=== PATIENT | female | born 1970 | race Caucasian/White ===

== ENCOUNTER 2018-07-25 04:10 | Emergency (ER) | payer OTHER ==
--- NOTE | 2018-07-25 04:38 | ED Physician Documentation ---
Abscess - HISTORIAN Historian: patient - HPI Stated Complaint: ABCESS Chief Complaint: General Adult Onset: days ago (3) Timing: still present Duration: worse Location: other (left labia ) Quality: painful Identified Cause?: No Where: home Context: Medication Exposure: none Context: Food Exposure: none - ROS CONST: none MS/SKIN/LYMPH: other (abcess area on left labia ) - PAST HX Past History: other (heart failure, DM GERD, Depression ) Surgeries/Procedures: Yes (heart ) Immunizations: UTD Allergies/Adverse Reactions: Allergies Allergy/AdvReac Type Severity Reaction Status Date / Time No Known Allergies Allergy Verified 09/12/16 20:52 Home Medications: Ambulatory Orders Medication Instructions Recorded Carvedilol [Coreg] 12.5 mg PO D 09/21/13 Citalopram Hydrobromide [Celexa] 40 mg PO D 09/21/13 Esomeprazole Magnesium [Nexium] 40 mg PO D 09/21/13 Furosemide 40 mg PO D 09/21/13 Insulin Glargine,Hum.rec.anlog 50 units SQ BID 09/21/13 [Lantus Solostar] Insulin Lispro [Humalog] 10 units SQ TID 09/21/13 Lisinopril 10 mg PO HS 09/21/13 - SOCIAL HX Smoking History: non-smoker Alcohol Use: none Drug Use: none - FAMILY HX Family History: none - VITAL SIGNS Vital Signs: Vital Signs Temp Pulse Resp BP Pulse Ox 97.6 F 67 12 123/86 92 07/25/18 04:15 07/25/18 04:15 07/25/18 04:15 07/25/18 04:15 07/25/18 04:15 - REVIEWED ASSESSMENTS Nursing Assessment Reviewed: Yes Vitals Reviewed: Yes Abscess Physical Exam - EXAM General Appearance: no acute distress, alert Skin: warm,dry, other (2 cm (palpated) cellulitis area on left lateral labia - no purulent drainage ) Symptoms: warmth, tenderness, swelling. No: induration, well defined border, weeping, crusting Extremities: non-tender, nml ROM Respiratory: no resp distress, chest non-tender, breath sounds normal CVS: reg. rate & rhythm, heart sounds nml Abdomen: non-tender, no organomegaly, nml bowel sounds Neuro/Psych: oriented x3 Discharge Clincal Impression: Abscess Comments: 1. Bactrim DS Take 1 by mouth BID X 10 days 2. Warm compress/Sitz type bath as discussed 3. New razor after 24 hours 4. See PCP In 2-4 days if no improvement 5. Return to ER for any concerns Condition: Stable Disposition: 01 HOME, SELF-CARE Decision to Admit: NO Date of Decison to Admit: 07/25/18 Decision Time: 04:44
[2018-07-25 04:57] VITALS: BP 137/86
== END 2018-07-25 04:55 | disposition home or self-care (01) ==
LOC: ED 04:10
DX: L02.91 Cutaneous abscess, unspecified (principal)
CPT/HCPCS: 99283

== ENCOUNTER 2018-08-27 08:25 | Emergency (ER) | payer MEDICARE, OTHER ==
--- NOTE | 2018-08-27 08:52 | ED Physician Documentation ---
General Adult - HISTORIAN Historian: patient, spouse - HPI Stated Complaint: cough x 2 weeks, n/v Chief Complaint: General Adult Onset: other (2 weeks) Timing: still present Severity: moderate Further Comments: yes (Pt is a 47 yo female who c/o n/v x 2 weeks. Pt has also had R rib pain, 2nd to coughing. Pt has hx DM, cardiomyopathy and defibrillator. Pt also has known gallbladder dz and is being followed for this.) - ROS CONST: other (malaise) EYES/ENT: none CVS/RESP: shortness of breath, cough GI/: none MS/SKIN/LYMPH: none - PAST HX Past History: other (DM, sleep apnea, GERD, depression, cardiomyopathy, defibrillator) Allergies/Adverse Reactions: Allergies Allergy/AdvReac Type Severity Reaction Status Date / Time No Known Allergies Allergy Verified 08/27/18 08:58 Home Medications: Ambulatory Orders Medication Instructions Recorded Carvedilol [Coreg] 12.5 mg PO BID 09/21/13 Citalopram Hydrobromide [Celexa] 40 mg PO D 09/21/13 Esomeprazole Magnesium [Nexium] 40 mg PO D 09/21/13 Furosemide 40 mg PO D 09/21/13 Insulin Glargine,Hum.rec.anlog 50 units SQ BID 09/21/13 [Lantus Solostar] Insulin Lispro [Humalog] 10 units SQ TID 09/21/13 Lisinopril 10 mg PO HS 09/21/13 Doxycycline Monohydrate [Mondoxyne 100 mg PO Q12H #20 capsule 08/27/18 Nl] Metolazone [Zaroxolyn] 08/27/18 Potassium Chloride [Klor-Con M20] 20 meq PO DAILY 08/27/18 - SOCIAL HX Smoking History: cigarettes - FAMILY HX Family History: No - VITAL SIGNS Vital Signs: Vital Signs Temp Pulse Resp BP Pulse Ox 137/86 07/25/18 04:54 - REVIEWED ASSESSMENTS Nursing Assessment Reviewed: Yes Vitals Reviewed: Yes Progress - Progress Progress: CXR: Single view of the chest demonstrates a normal cardiac silhouette. Bibasilar parenchymal haziness and blunting of the diaphragmatic region. Osseous structures appropriate for age. Impression: Moderate to large bibasilar infiltrates/effusions. X-ray R ribs: no fracture. CT chest pulmonic pulmonary embolism protocol: No evidence for luminal filling defect within the main pulmonary arteries to the 3rd order branch vessels bilaterally. Thoracic aorta without aneurysmal dilation. No evidence for dissection flap. Lungs demonstrate mild interstitial prominence with dependent atelectasis bilaterally. Small focal consolidation involving the superior margin of the right lower lung. No evidence for posterior pleural effusion or thickening. Mild by hilar jeromy fullness. Cardiac silhouette not enlarged. No pericardial effusion. Cardiac pacemaker. Osseous structures demonstrate degenerative changes. Lower neck structures, axilla regions, and upper abdominal organs are without gross irregularity. Impression: No evidence for pulmonary embolism by CT criteria. No evidence for thoracic aortic dissection or abnormality. Small focal right midlung consolidation. Generalized interstitial prominence suggesting congestive edema. No effusion. Insulin regular 10 units SQ Insulin regular 10 units SQ Rx Doxycycline 100 mg. Take one by mouth every 12 hours for 10 days. Follow up with primary provider next week. Continue Lasix and Zaroxolyn. - EKG/XRAY/CT EKG: rhythm (sinus tachycardia, HR-104; non-specific T-wave abnormality; normal axis.) XRAY: chest (No acute pulmonary process.) ED Results Lab/Radiology - Orders Orders: ED Orders Category Date Time Status Continuous EKG monitoring Q30M Care 08/27/18 08:47 Ordered Continuous Pulse Oximetry Q30M Care 08/27/18 08:[address] IV Lock 1T Care 08/27/18 08:47 Ordered CHEST 2VIEW [RAD] Stat Exams 08/27/18 Ordered BLOOD CULTURE Stat Lab 08/27/18 Ordered CBC/PLATELET/DIFF Routine Lab 08/27/18 08:47 Ordered CKMB Stat Lab 08/27/18 Ordered CMP Routine Lab 08/27/18 08:47 Ordered CREATINE KINASE Routine Lab 08/27/18 08:47 Ordered TROPONIN I (cTnI) Stat Lab 08/27/18 08:47 Ordered Oxygen Daily Oxygen 08/27/18 09:00 Ordered EKG WITH COMPARISON Stat Ther 08/27/18 08:47 Ordered General Adult Physical Exam - PHYSICAL EXAM GENERAL APPEARANCE: mild distress EENT: pharynx normal NECK: normal inspection, supple RESPIRATORY: no resp distress, breath sounds normal, other (R chest wall tenderness) CVS: heart sounds normal, tachycardia ABDOMEN: soft, no organomegaly, normal bowel sounds BACK: normal inspection, no CVA tenderness SKIN: warm/dry, normal color EXTREMITIES: non-tender, normal range of motion, no evidence of injury, no edema NEURO: oriented X3, motor nml, sensation nml Discharge Clincal Impression: Small R midlung consolidation, hyperglycemia, Elevated brain natriuretic peptide (BNP) level, know gall bladder dz Prescriptions: Doxycycline Monohydrate [Mondoxyne Nl] 100 mg PO Q12H #20 capsule Referrals: Primary Doctor,No [Primary Care Provider] - Condition: Stable Disposition: 01 HOME, SELF-CARE Decision to Admit: NO Decision Time: 14:20
[2018-08-27] MEDS ORDERED: IPRATROPIUM/ALBUTEROL SULFATE 3 ML AMPUL.NEB NEB ONE (08:54)
[2018-08-27] MEDS ORDERED: INSULIN REGULAR, HUMAN 100 UNIT/ML 3ML VIAL SQ ONE ×2 (08:55→13:15)
[2018-08-27] MEDS ORDERED: 0.9 % SODIUM CHLORIDE 1,000 ML IV ONE (08:56)
[2018-08-27] MEDS ORDERED: ONDANSETRON HCL/PF 4 MG/ 2ML VIAL IVP ONE (09:10)
[2018-08-27 09:24] LABS: MEAN CORPUSCULAR HEMOGLOBIN 26.3 pg (28.0-34.0)
[2018-08-27 09:25] LABS: BASOPHILS % 0.9 (0.0-1.5); EOSINOPHILS % 1.5 % (0.0-6.8); MONOCYTES % 8.5 % (0.0-11.0); NEUTROPHILS # 8.3 # k/uL (1.4-7.7)
[2018-08-27 09:33] LABS: eGFR (Non-African) > 60
[2018-08-27 12:51] LABS: TROPONIN T <0.010 ng/mL (<0.010)
[2018-08-27 14:31] VITALS: BP 119/90
--- NOTE | 2018-08-27 20:16 | Diagnostic Imaging Report ---
CORI ISAACS [facility] [address] [facility] [address] [place], [place]. [address] Report Submission Date: Aug 27, 2018 9:25:53 AM CDT Patient Study Name: CHANDRIKA BUSTILLOS Date: Aug 27, 2018 8:52:25 AM CDT Modality Type: DX Gender: F Description: CHEST : 66 Institution: [facility] Physician: CORI ISAACS Examination: PA and lateral chest. History: Evaluate lung weems. RT ANT UPPER RIB PAIN, COUGH, N/V, X2 WEEKS, NO INJURY (Hx) Comparison exam: None provided. Findings: PA and lateral views of the chest demonstrates a prominent cardiac and mediastinal silhouette. No focal infiltrate. No blunting of the costophrenic margins. Left-sided cardiac pacemaker. Osseous structures are appropriate for age. Impression: No acute pulmonary process. Electronically signed on Aug 27, 2018 9:25:53 AM CDT by: Wilfrid ZARATE
--- NOTE | 2018-08-27 20:16 | Diagnostic Imaging Report ---
CORI ISAACS [facility] [address] [facility] [address] [address] Report Submission Date: Aug 27, 2018 9:31:29 AM CDT Patient Study Name: CHANDRIKA BUSTILLOS Date: Aug 27, 2018 8:55:28 AM CDT Modality Type: DX Gender: F Description: CHEST : 66 Institution: [facility] Physician: CORI ISAACS Examination: Plain film right ribs History: RT ANT UPPER RIB PAIN, COUGH, N/V, X2 WEEKS, NO INJURY (Hx) Findings: 3 views of the right ribs demonstrates normal cortical margins. No fracture or dislocation. Underlying parenchymal without abnormality. Acromioclavicular joint degenerative changes. Impression: No rib fracture/abnormality. Electronically signed on Aug 27, 2018 9:31:29 AM CDT by: Wilfrid ZARATE
--- NOTE | 2018-08-27 20:18 | Diagnostic Imaging Report ---
CORI ISAACS [facility] [address] [facility] [address] [place] [address]. [address] Report Submission Date: Aug 27, 2018 11:24:41 AM CDT Patient Study Name: CHANDRIKA BUSTILLOS Date: Aug 27, 2018 10:55:04 AM CDT Modality Type: CT\SR Gender: F Description: CT PE CHEST : 66 Institution: [facility] Physician: CORI ISAACS Examination: CT chest pulmonary embolism History: SOA X2-3 WEEKS, ELEVATED DDIMER (Hx) Comparison exam: Plain film dated 27 August 2018 Technique: CT chest pulmonic pulmonary embolism protocol. Findings: No evidence for luminal filling defect within the main pulmonary arteries to the 3rd order branch vessels bilaterally. Thoracic aorta without aneurysmal dilation. No evidence for dissection flap. Lungs demonstrate mild interstitial prominence with dependent atelectasis bilaterally. Small focal consolidation involving the superior margin of the right lower lung. No evidence for posterior pleural effusion or thickening. Mild by hilar jeromy fullness. Cardiac silhouette not enlarged. No pericardial effusion. Cardiac pacemaker. Osseous structures demonstrate degenerative changes. Lower neck structures, axilla regions, and upper abdominal organs are without gross irregularity. Impression: No evidence for pulmonary embolism by CT criteria. No evidence for thoracic aortic dissection or abnormality. Small focal right midlung consolidation. Generalized interstitial prominence suggesting congestive edema. No effusion. Electronically signed on Aug 27, 2018 11:24:41 AM CDT by: Wilfrid ZARATE
== END 2018-08-27 14:09 | disposition home or self-care (01) ==
LOC: ED 08:25
DX: J98.4 Other disorders of lung (principal); R73.9 Hyperglycemia, unspecified; R79.89 Other specified abnormal findings of blood chemistry; Z95.0 Presence of cardiac pacemaker; R06.02 Shortness of breath
CPT/HCPCS: 71046; 71100; 71275; 80053; 82550; 82553; 83880; 84484; 85025; 85379; 87040; 93005; J1815; J2405; J7030; 94640; 96365; 96372; 96375; 99285; Q9967; S1016

== ENCOUNTER 2018-09-04 15:18 | Emergency (ER) | payer MEDICARE, OTHER ==
[2018-09-04 15:34] LABS: MEAN CORPUSCULAR HEMOGLOBIN 25.9 pg (28.0-34.0)
[2018-09-04 15:35] LABS: BASOPHILS % 0.9 (0.0-1.5); EOSINOPHILS % 3.8 % (0.0-6.8); MONOCYTES % 11.9 % (0.0-11.0)
[2018-09-04] MEDS ORDERED: MORPHINE SULFATE 2 MG/ML PREFILLED SYR IVP ONE (15:35)
[2018-09-04] MEDS ORDERED: ONDANSETRON HCL/PF 4 MG/ 2ML VIAL IVP ONE (15:35)
[2018-09-04 15:51] LABS: eGFR (Non-African) > 60
--- NOTE | 2018-09-04 16:02 | Diagnostic Imaging Report ---
MAXINE RICO [facility] [address] [facility] [address] [place], [place]. [address] Report Submission Date: Sep 04, 2018 3:57:36 PM CDT Patient Study Name: CHANDRIKA BUSTILLOS Date: Sep 04, 2018 3:33:59 PM CDT Modality Type: DX Gender: F Description: CHEST : 66 Institution: [facility] Physician: MAXINE RICO Ap portable upright radiographs of the chest Clinical history: Chest pain Comparison August 27, 2018 Technique: anterior /posterior portable upright Findings: The lung weems are clear. The mediastinal structures are stable. Cardiomegaly and pacemaker are not changed. The bony thorax is unremarkable. No pneumothorax or pleural effusion is seen. Impression: No acute pulmonary disease Electronically signed on Sep 04, 2018 3:57:36 PM CDT by: Kelechi ZARATE
--- NOTE | 2018-09-04 17:01 | ED Physician Documentation ---
GI Bleed - HPI Stated Complaint: RUQ abd pain, vomiting Chief Complaint: Abdominal Pain Additional Information: Patient presents to ED with a 24 hour history of RUQ/epigastric pain associated with nausea/vomiting. Patient states she has gall bladder disease and has been referred to a surgeon to have to removed, however, she is waiting for cardiology clearance. 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 She has cardiomyopathy with LVEF 15% and AICD. Onset: hours (24) Timing: gradual onset Severity: moderate - Associated Symptoms Description of Stools: denies: dark stools, constipation Abdominal Pain: epigastric (dull ache/cramping 04/25), RUQ Emesis Description: denies: blood Description of Rectal Bleed: denies: bleeding w/o stools Other Related Symptoms: nausea - ROS CONST: no problems SKIN/LYMPH: denies: leg swelling CVS/RESP: denies: chest pain, shortness of breath GI/: denies: problems urinating EYES/ENT: denies: sore throat MS: denies: calf pain, neck pain NEURO/PSYCH: headache - PAST HX Past History: other (cardiomyopathy LVEF 15%) Surgeries/Procedures: none, hysterectomy Allergies/Adverse Reactions: Allergies Allergy/AdvReac Type Severity Reaction Status Date / Time No Known Allergies Allergy Verified 08/27/18 08:58 Home Medications: Ambulatory Orders Medication Instructions Recorded Carvedilol [Coreg] 12.5 mg PO BID 09/21/13 Citalopram Hydrobromide [Celexa] 40 mg PO D 09/21/13 Esomeprazole Magnesium [Nexium] 40 mg PO D 09/21/13 Furosemide 40 mg PO D 09/21/13 Insulin Glargine,Hum.rec.anlog 50 units SQ BID 09/21/13 [Lantus Solostar] Insulin Lispro [Humalog] 10 units SQ TID 09/21/13 Lisinopril 10 mg PO HS 09/21/13 Doxycycline Monohydrate [Mondoxyne 100 mg PO Q12H #20 capsule 08/27/18 Nl] Metolazone [Zaroxolyn] 08/27/18 Potassium Chloride [Klor-Con M20] 20 meq PO DAILY 08/27/18 Hydrocodone/Acetaminophen [[place] 1 tab PO Q4H PRN #15 09/04/18 5-325 Tablet] Ondansetron HCl Rapdis [Zofran Odt] 4 mg PO Q8 PRN #45 tab 09/04/18 - SOCIAL HX Smoking History: non-smoker Alcohol Use: none Drug Use: none - FAMILY HX Family History: none - VITAL SIGNS Vital Signs: Vital Signs Temp Pulse Resp BP Pulse Ox 97.9 F 87 16 113/81 99 09/04/18 15:19 09/04/18 15:19 09/04/18 15:19 09/04/18 15:19 09/04/18 15:19 - REVIEWED ASSESSMENTS Nursing Assessment Reviewed: Yes Vitals Reviewed: Yes Progress - Progress Progress: 1707 Patient states she is feeling better. Discussed elevated bilirubin/lfts and the need for CT abd/pelvis. Patient agrees with plan. 1751 CT abd/pelvis negative for acute cholecyctitis or obstructing gall stones. Fatty liver is evident, likely the source of elevated LFTs/bilirubin. - EKG/XRAY/CT EKG: NSR (87 bpm left atrial enlargment) ED Results Lab/Radiology - Lab Results Lab Results: Lab Results 09/04/18 09/04/18 09/04/18 15:32 15:31 15:31 WBC 10.70 K/ul K/ul (4.00-12.00) RBC 5.91 M/ul H M/ul (3.90-5.20) Hgb 15.3 g/dL g/dL (12.0-16.0) Hct 48.9 % H % (34.5-46.5) MCV 83.0 fl fl (80.0-100.0) MCH 25.9 pg L pg (28.0-34.0) MCHC 31.3 g/dL g/dL (30.0-36.0) RDW 16.2 % H % (11.3-14.3) Plt Count 235 K/mm3 K/mm3 (130-400) Neut % (Auto) 47.1 % % (39.0-79.0) Lymph % (Auto) 36.3 % % (16.0-50.0) [place] % (Auto) 11.9 % H % (0.0-11.0) Eos % (Auto) 3.8 % % (0.0-6.8) Baso % (Auto) 0.9 (0.0-1.5) Neut # (Auto) 5.0 # k/uL # k/uL (1.4-7.7) Lymph # (Auto) 3.9 # k/uL # k/uL (0.6-4.0) [place] # (Auto) 1.3 # k/uL H # k/uL (0.0-0.9) Eos # (Auto) 0.4 # k/uL # k/uL (0.0-0.6) Baso # (Auto) 0.1 # k/uL # k/uL (0.0-0.5) Sodium 134 mmol/L L mmol/L (136-145) Potassium 4.1 mmol/L mmol/L (3.5-5.1) Chloride 90 mmol/L L mmol/L (98-107) Carbon Dioxide 28 mmol/L mmol/L (22-30) BUN 11 mg/dL mg/dL (7-17) Creatinine 0.70 mg/dL mg/dL (0.52-1.04) Est GFR ( Amer) > 60 (60 - ) Est GFR (Non-Af Amer) > 60 (60 - ) Glucose 452 mg/dL H mg/dL (74-106) Calcium 7.6 mg/dL L mg/dL (8.4-10.2) Total Bilirubin 2.1 mg/dL H mg/dL (0.2-1.3) AST 52 U/L H U/L (15-46) ALT 83 U/L H U/L (13-69) Alkaline Phosphatase 476 U/L H U/L (38-126) Troponin I < 0.03 ng/mL L ng/mL (0.03-0.06) NT-Pro-B Natriuret Pep 928.7 pg/mL H pg/mL (15.0-125.0) Total Protein 7.8 g/dL g/dL (6.3-8.2) Albumin 3.7 g/dL g/dL (3.5-5.0) - Radiology Radiology Impressions: Ap portable upright radiographs of the chest Clinical history: Chest pain Comparison August 27, 2018 Technique: anterior /posterior portable upright Findings: The lung weems are clear. The mediastinal structures are stable. Cardiomegaly and pacemaker are not changed. The bony thorax is unremarkable. No pneumothorax or pleural effusion is seen. Impression: No acute pulmonary disease Electronically signed on Sep 04, 2018 3:57:36 PM CDT by: Kelechi Metzger CT abdomen and pelvis with contrast Date of study: September 04, 2018 CLINICAL HISTORY: ORDER STATES CT ABD &; PELVIS W/ CON - RUQ PAIN, ELEVATED LFTs AND BILIRUBIN (Hx) / ITS.REASON RUQ pain, elevated LFTs and bilirubin (DICOM Hx) / ITS.REASON R rib pain (Pt comments) TECHNIQUE: 5 mm contiguous axial images of the abdomen and pelvis with IV contrast. With; 90 CC OMNIPAQUE FINDINGS: Lung bases are clear. Pacemaker is present in the right ventricle. There is prominent reflux of contrast into the hepatic veins and fatty change in the liver. Spleen adrenal glands pancreas and kidneys are normal. The aorta is not dilated. Aortoiliac vascular calcification is present. The gallbladder is distended. The pelvis shows no acute pathology. The bladder is unremarkable. Uterus is unremarkable. IMPRESSION: Very prominent opacification the pattern veins by injected contrast, suggesting right heart dysfunction. \ Fatty liver Distended gallbladder with no other abnormality identified in the gallbladder. Aortoiliac vascular calcification Electronically signed on Sep 04, 2018 5:43:41 PM CDT by: Kelechi Metzger - Orders Orders: ED Orders Category Date Time Status Place IV Lock 1T Care 09/04/18 15:29 Active CHEST 1VIEW [RAD] Stat Exams 09/04/[address] ABD & PELVIS W/ CON Stat Exams 09/04/18 Taken CBC/PLATELET/DIFF Routine Lab 09/04/18 15:31 Completed CMP Routine Lab 09/04/18 15:31 Completed NT-proBNP Stat Lab 09/04/18 15:32 Completed TROPONIN I (cTnI) Stat Lab 09/04/18 15:32 Completed Morphine Sulfate [DepoDur] Med 09/04/18 15:35 Discontinued 2 mg IVP NOW ONE Ondansetron HCl/Pf [Zofran 4 mg/2 ml] Med 09/04/18 15:35 Discontinued 4 mg IVP NOW ONE Abdominal Pain Physical Exam - Physical Exam General Appearance: no acute distress, alert EENT: [place] NECK: normal inspection RESPIRATORY: no resp distress, chest non-tender, breath sounds normal CVS: reg rate & rhythm, no murmur (distant heart sounds) ABDOMEN: soft, tenderness (RUQ/epigastric) PELVIC EXAM: other (deferred) RECTAL: deferred BACK: no CVA tenderness SKIN: warm/dry, normal color EXTREMITIES: no edema NEURO: oriented X3, motor nml Vital Signs: Vital Signs Temp Pulse Resp BP Pulse Ox 97.9 F 87 16 113/81 99 09/04/18 15:19 09/04/18 15:19 09/04/18 15:19 09/04/18 15:19 09/04/18 15:19 Discharge Clincal Impression: Gall bladder pain Prescriptions: Hydrocodone/Acetaminophen [[place] 5-325 Tablet] 1 tab PO Q4H PRN #15 PRN Reason: Pain Ondansetron HCl Rapdis [Zofran Odt] 4 mg PO Q8 PRN #45 tab PRN Reason: Nausea / Vomiting Referrals: Primary Doctor,No [Primary Care Provider] - 2 Days Additional Instructions: Patient was instructed to follow up with Surgeon for cholecystectomy as soon as possible. Patient has a follow up with Cheesemaker on Thursday09/07/18 for surgery clearance. Condition: Stable Disposition: 01 HOME, SELF-CARE Decision to Admit: NO Date of Decison to Admit: 09/04/18 Decision Time: 18:07
[2018-09-04 18:21] VITALS: BP 118/83
--- NOTE | 2018-09-04 19:08 | Diagnostic Imaging Report ---
MAXINE RICO [facility] [address] [facility] [address] [place], [place]. [address] Report Submission Date: Sep 04, 2018 5:43:41 PM CDT Patient Study Name: CHANDRIKA BUSTILLOS Date: Sep 04, 2018 5:25:36 PM CDT Modality Type: CT\SR Gender: F Description: CT ABD PELVIS W/ CON : 66 Institution: [facility] Physician: MAXINE RICO CT abdomen and pelvis with contrast Date of study: September 04, 2018 CLINICAL HISTORY: ORDER STATES CT ABD &; PELVIS W/ CON - RUQ PAIN, ELEVATED LFTs AND BILIRUBIN (Hx) / ITS.REASON RUQ pain, elevated LFTs and bilirubin (DICOM Hx) / ITS.REASON R rib pain (Pt comments) TECHNIQUE: 5 mm contiguous axial images of the abdomen and pelvis with IV contrast. With; 90 CC OMNIPAQUE FINDINGS: Lung bases are clear. Pacemaker is present in the right ventricle. There is prominent reflux of contrast into the hepatic veins and fatty change in the liver. Spleen adrenal glands pancreas and kidneys are normal. The aorta is not dilated. Aortoiliac vascular calcification is present. The gallbladder is distended. The pelvis shows no acute pathology. The bladder is unremarkable. Uterus is unremarkable. IMPRESSION: Very prominent opacification the pattern veins by injected contrast, suggesting right heart dysfunction. \ Fatty liver Distended gallbladder with no other abnormality identified in the gallbladder. Aortoiliac vascular calcification Electronically signed on Sep 04, 2018 5:43:41 PM CDT by: Kelechi ZARATE
== END 2018-09-04 18:19 | disposition home or self-care (01) ==
LOC: ED 15:18
DX: K82.9 Disease of gallbladder, unspecified (principal)
CPT/HCPCS: 71045; 74177; 80053; 83880; 84484; 85025; 93005; J2270; J2405; 96374; 96375; 99285; Q9967; S1016

== ENCOUNTER 2018-09-10 22:35 | Emergency (ER) | payer MEDICARE, OTHER ==
[2018-09-10] MEDS ORDERED: ONDANSETRON HCL/PF 4 MG/ 2ML VIAL IVP ONE (23:04)
[2018-09-10] MEDS ORDERED: 0.9 % SODIUM CHLORIDE 1,000 ML IV ONE ×2 (23:16→23:22)
[2018-09-10 23:36] LABS: MEAN CORPUSCULAR HEMOGLOBIN 25.9 pg (28.0-34.0)
[2018-09-10 23:47] LABS: eGFR (Non-African) > 60
[2018-09-10] MEDS ORDERED: INSULIN REGULAR, HUMAN 100 UNIT/ML 3ML VIAL SQ ONE (23:51)
[2018-09-11] MEDS ORDERED: CALCIUM CARB 500 MG TAB.CHEW ONE (00:10)
--- NOTE | 2018-09-11 00:17 | ED Physician Documentation ---
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 pt presents to the ED c/o severe upper abdominal pain that she has had for several months that worsened today. pt reports she has gallbladder issues but has been told she is not a surgical candidate due to her low ejection fraction. pt has internal defib in place. 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 - ROS CONST: sweating, other (denies chest pain, dyspnea, near syncope). denies: fever, weakness EYES/ENT: none. denies: sore throat CVS/RESP: none. denies: chest pain, shortness of breath GI/: abdominal pain, vomiting, nausea. denies: problems urinating, diarrhea MS/SKIN/LYMPH: none NEURO/PSYCH: denies: headache, dizziness - PAST HX Past History: other (low Ejection fraction. CHF. Gerd. depression. DM2) Surgeries/Procedures: , other (appendectomy) Allergies/Adverse Reactions: Allergies Allergy/AdvReac Type Severity Reaction Status Date / Time No Known Allergies Allergy Verified 08/27/18 08:58 Home Medications: Ambulatory Orders Medication Instructions Recorded Carvedilol [Coreg] 12.5 mg PO BID 09/21/13 Citalopram Hydrobromide [Celexa] 40 mg PO D 09/21/13 Esomeprazole Magnesium [Nexium] 40 mg PO D 09/21/13 Furosemide 40 mg PO D 09/21/13 Insulin Glargine,Hum.rec.anlog 50 units SQ BID 09/21/13 [Lantus Solostar] Insulin Lispro [Humalog] 10 units SQ TID 09/21/13 Lisinopril 10 mg PO HS 09/21/13 Doxycycline Monohydrate [Mondoxyne 100 mg PO Q12H #20 capsule 08/27/18 Nl] Metolazone [Zaroxolyn] 08/27/18 Potassium Chloride [Klor-Con M20] 20 meq PO DAILY 08/27/18 Hydrocodone/Acetaminophen [[place] 1 tab PO Q4H PRN #15 09/04/18 5-325 Tablet] Ondansetron HCl Rapdis [Zofran Odt] 4 mg PO Q8 PRN #45 tab 09/04/18 - SOCIAL HX Smoking History: non-smoker - FAMILY HX Family History: No - VITAL SIGNS Vital Signs: Vital Signs Temp Pulse Resp BP Pulse Ox 97 F L 78 20 106/75 99 09/10/18 22:35 09/10/18 22:35 09/10/18 22:35 09/10/18 22:35 09/10/18 22:35 - REVIEWED ASSESSMENTS Nursing Assessment Reviewed: Yes Vitals Reviewed: Yes Progress - Progress Progress: pt blood glucose >700 on CMP. insulin R 10 units SQ given. subsequent blood glucose POC-high Insulin 10 u IV subsequent blood glucose POC high Insulin gtt 7u/hr started prior to transport. pt abd pain improved to 6/10 after dilaudid 1 mg IV. 0150- 107/65 75 18 92% RA a/o x 3 skin pwd eupneic. no distress. 0230 POC blood glucose 500 0314: 313 poc blood glucose. Decreased drip to 5u/hour - Consult/PCP Time Called: 01:00 Consult/PCP: Dr Smith Consult Reason/Comments: accepted pt for transfer to [facility] via ALS [facility] ED Results Lab/Radiology - Lab Results Lab Results: Lab Results 09/10/18 09/10/18 23:15 23:15 WBC 8.50 K/ul K/ul (4.00-12.00) RBC 5.84 M/ul H M/ul (3.90-5.20) Hgb 15.1 g/dL g/dL (12.0-16.0) Hct 48.7 % H % (34.5-46.5) MCV 83.0 fl fl (80.0-100.0) MCH 25.9 pg L pg (28.0-34.0) MCHC 31.1 g/dL g/dL (30.0-36.0) RDW 16.0 % H % (11.3-14.3) Plt Count 179 K/mm3 K/mm3 (130-400) Sodium 124 mmol/L L mmol/L (136-145) Potassium 3.6 mmol/L mmol/L (3.5-5.1) Chloride 81 mmol/L L mmol/L (98-107) Carbon Dioxide 28 mmol/L mmol/L (22-30) BUN 10 mg/dL mg/dL (7-17) Creatinine 0.80 mg/dL mg/dL (0.52-1.04) Est GFR ( Amer) > 60 (60 - ) Est GFR (Non-Af Amer) > 60 (60 - ) Glucose > 700 mg/dL H* mg/dL (74-106) Calcium 7.5 mg/dL L mg/dL (8.4-10.2) Total Bilirubin 1.2 mg/dL mg/dL (0.2-1.3) AST 28 U/L U/L (15-46) ALT 41 U/L U/L (13-69) Alkaline Phosphatase 643 U/L H U/L (38-126) Total Protein 6.9 g/dL g/dL (6.3-8.2) Albumin 3.5 g/dL g/dL (3.5-5.0) - Radiology Radiology Impressions: Portable chest Clinical history: Chest pain. History of pneumonia. Findings: Examination of the chest single portable AP view with comparison to examination of 09/04/2018 demonstrates implanted defibrillator overlying left hemithorax without change. Cardiovascular and mediastinal silhouettes are stable. Right hilum is prominent consistent with prominent pulmonary artery. This appearance is unchanged. Lungs are free of coalescent infiltrate. Impression: 1. Implanted defibrillator. 2. Cardiomegaly. 3. No significant change. Electronically signed on Sep 11, 2018 1:45:52 AM CDT by: Hood Maria CT abdomen and pelvis with contrast Date of study: September 04, 2018 CLINICAL HISTORY: ORDER STATES CT ABD &; PELVIS W/ CON - RUQ PAIN, ELEVATED LFTs AND BILIRUBIN (Hx) / ITS.REASON RUQ pain, elevated LFTs and bilirubin (DICOM Hx) / ITS.REASON R rib pain (Pt comments) TECHNIQUE: 5 mm contiguous axial images of the abdomen and pelvis with IV contrast. With; 90 CC OMNIPAQUE FINDINGS: Lung bases are clear. Pacemaker is present in the right ventricle. There is prominent reflux of contrast into the hepatic veins and fatty change in the liver. Spleen adrenal glands pancreas and kidneys are normal. The aorta is not dilated. Aortoiliac vascular calcification is present. The gallbladder is distended. The pelvis shows no acute pathology. The bladder is unremarkable. Uterus is unremarkable. IMPRESSION: Very prominent opacification the pattern veins by injected contrast, suggesting right heart dysfunction. \ Fatty liver Distended gallbladder with no other abnormality identified in the gallbladder. Aortoiliac vascular calcification Electronically signed on Sep 04, 2018 5:43:41 PM CDT by: Kelechi Metzger - Orders Orders: ED Orders Category Date Time Status Place IV Lock 1T Care 09/10/18 23:03 Active CBC PLATELETS NO DIFF Stat Lab 09/10/18 23:15 Completed CMP [CMP] Stat Lab 09/10/18 23:15 Completed UA [URINALYSIS] Routine Lab 09/10/18 Ordered 0.9 % Sodium Chloride [Normal Saline] 1,000 ml Med 09/10/18 23:16 Discontinued IV .STK-MED 0.9 % Sodium Chloride [Normal Saline] 1,000 ml Med 09/10/18 23:22 Active IV Q1H Calcium Carb 500Mg [Tums] Med 09/11/18 09:00 Ordered 2,000 mg PO D Chem Sticks Med 09/10/18 23:21 Ordered 1 each MC CHEMQID PRN Insulin Regular, Human [Humulin R] Med 09/10/18 23:51 Discontinued 10 unit SQ NOW ONE Ondansetron HCl/Pf [Zofran 4 mg/2 ml] Med 09/10/18 23:04 Discontinued 4 mg IVP NOW ONE EKG WITH COMPARISON Stat Ther 09/10/18 Ordered General Adult Physical Exam - PHYSICAL EXAM GENERAL APPEARANCE: mild distress EENT: eye inspection normal, ENT inspection normal, pharynx normal, SEYMOUR, TM's nml, dry mucous membranes, other (dental caries/missing teeth). No: pharyngeal erythema NECK: normal inspection RESPIRATORY: no resp distress, breath sounds normal. No: wheezes, rales, rhonchi CVS: reg rate & rhythm, equal pulses, no JVD ABDOMEN: soft, normal bowel sounds, no distension, tenderness (Bilat upper quad), McBurney's point tenderne, guarding. No: psoas, obturator sign, Rovsing's sign BACK: normal inspection, no CVA tenderness SKIN: warm/dry, normal color, other (pronounced vasodilation to face/ears) EXTREMITIES: non-tender, normal range of motion, no evidence of injury, no edema NEURO: oriented X3, motor nml, sensation nml Discharge Clincal Impression: Hyperglycemia, Hyponatremia, Hypocalcemia, Dehydration Abdominal pain Qualifiers: Abdominal location: upper abdomen, unspecified Qualified Code(s): R10.10 - Upper abdominal pain, unspecified Referrals: Primary Doctor,No [Primary Care Provider] - 2 Days Comments: Critical care entire stay Condition: Fair Disposition: 02 XFER [facility] HOSP Decision to Admit: NO Date of Decison to Admit: 09/11/18 Decision Time: 01:00
[2018-09-11] MEDS ORDERED: HYDROmorphone HCL/PF 1 MG/ML DISP.SYRIN IVP ONE (00:42)
[2018-09-11] MEDS ORDERED: INSULIN REGULAR, HUMAN 100 UNIT/ML 3ML VIAL IV ONE (00:44)
[2018-09-11] MEDS ORDERED: INSULIN REGULAR, HUMAN 100 UNIT in 0.9 % SODIUM CHLORIDE 100 ML IV ONE ×2 (01:28)
[2018-09-11] MEDS: 0.9 % SODIUM CHLORIDE 1,000 ML IV SCH ×2 (02:33→03:00)
--- NOTE | 2018-09-11 03:38 | Diagnostic Imaging Report ---
IMANI MARTE [facility] [address] [facility].[address] [address] Report Submission Date: Sep 11, 2018 1:45:52 AM CDT Patient Study Name: CHANDRIKA BUSTILLOS Date: Sep 11, 2018 1:21:49 AM CDT Modality Type: DX Gender: F Description: CHEST : 66 Institution: [facility] Physician: IMANI MARTE Portable chest Clinical history: Chest pain. History of pneumonia. Findings: Examination of the chest single portable AP view with comparison to examination of 09/04/2018 demonstrates implanted defibrillator overlying left hemithorax without change. Cardiovascular and mediastinal silhouettes are stable. Right hilum is prominent consistent with prominent pulmonary artery. This appearance is unchanged. Lungs are free of coalescent infiltrate. Impression: 1. Implanted defibrillator. 2. Cardiomegaly. 3. No significant change. Electronically signed on Sep 11, 2018 1:45:52 AM CDT by: Hood ZARATE
[2018-09-11 04:49] VITALS: BP 143/71
[2018-09-11 07:25] LABS: APPEARANCE,URINE CLEAR (CLEAR); COLOR,URINE YELLOW (YELLOW); OCCULT BLOOD,URINE TRACE-INTACT (NEGATIVE); PH URINE 6.5 (5.0 - 8.0); UROBILINOGEN URINE 0.2 Eu (0.2-1.0)
[2018-09-11] MEDS ORDERED: CALCIUM CARB 500 MG TAB.CHEW PO SCH (09:00)
== END 2018-09-11 03:50 | disposition short-term general hospital (02) ==
LOC: ED 22:35
DX: R73.9 Hyperglycemia, unspecified (principal); R10.10 Upper abdominal pain, unspecified; E87.1 Hypo-osmolality and hyponatremia; E83.51 Hypocalcemia; E86.0 Dehydration; Z86.79 Personal history of other diseases of the circulatory system; Z95.0 Presence of cardiac pacemaker; R79.89 Other specified abnormal findings of blood chemistry
CPT/HCPCS: 71045; 80053; 81002; 83690; 83880; 84484; 85027; 93005; J1170; J1815; J2405; J7030; 96360; 96361; 96365; 96372; 96375; 99291; 99292; S1016

== ENCOUNTER 2018-10-20 10:40 | Emergency (ER) | payer MEDICARE, OTHER ==
[2018-10-20] MEDS ORDERED: ONDANSETRON HCL/PF 4 MG/ 2ML VIAL IVP ONE (10:46)
[2018-10-20] MEDS ORDERED: IPRATROPIUM/ALBUTEROL SULFATE 3 ML AMPUL.NEB NEB ONE (10:47)
[2018-10-20] MEDS ORDERED: methylPREDNISolone SOD SUCC 125 MG/2 ML VIAL IVP ONE (10:47)
[2018-10-20] MEDS ORDERED: FUROSEMIDE 40 MG/4 ML VIAL IVP ONE (10:57)
--- NOTE | 2018-10-20 11:06 | ED Physician Documentation ---
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 She wears oxygen (3 liters per nasal cannula with sleep and PRN during the day) and has been using it more throughout the day and has had difficulty sleeping during the night due to her shortness of breath. She admits to dry cough, chills. Patient reports a 5 - 7 day hospitalization at [facility] about 2-3 weeks ago for hypoglycemia. She states she stopped smoking about 2 weeks ago Onset: days ago (10) Duration: intermittent Severity: moderate Exacerbated By: laying flat, coughing Associated Symptoms: chills - ROS CONST: no problems EYES/ENT: denies: sore throat, nasal drainage, nasal congestion GI/: abdominal pain, nausea. denies: vomiting NEURO/PSYCH: denies: headache MS/SKIN/LYMPH: denies: muscle aches - PAST HX Lung Disease: COPD Cardiac Disease: CHF PE Risk Factors: other (recent hospitalization) Surgeries/Procedures: other (AICD placement) Allergies/Adverse Reactions: Allergies Allergy/AdvReac Type Severity Reaction Status Date / Time No Known Allergies Allergy Verified 10/20/18 11:53 Home Medications: Ambulatory Orders Medication Instructions Recorded Carvedilol [Coreg] 12.5 mg PO BID 09/21/13 Furosemide 40 mg PO D 09/21/13 Insulin Glargine,Hum.rec.anlog 50 units SQ BID 09/21/13 [Lantus Solostar] Insulin Lispro [Humalog] 10 units SQ TID 09/21/13 Lisinopril 10 mg PO HS 09/21/13 Metolazone [Zaroxolyn] 2.5 mg PO D 08/27/18 Potassium Chloride [Klor-Con M20] 20 meq PO DAILY 08/27/18 Ondansetron HCl Rapdis [Zofran Odt] 4 mg PO Q8 PRN #45 tab 09/04/18 - SOCIAL HX Smoking History: quit less than 1 year, cigarettes Alcohol Use: none Drug Use: none - FAMILY HX Family History: none - VITAL SIGNS Vital Signs: Vital Signs Temp Pulse Resp BP Pulse Ox 143/71 09/11/18 04:43 - REVIEWED ASSESSMENTS Nursing Assessment Reviewed: Yes Vitals Reviewed: Yes Progress - Progress Progress: 1156 Lab called blood glucose is 765. Will give IV insulin bolus 1211 Patient still short of breath. Reports not checking blood sugar or taking insulin in 2-3 days. 1218 CMP reveal CO2 12, Sodium 122, Calculated Anion gap 23. Will start NS 1250 Lab called d.dimer >5000 will give treatment dose lovenox [address] Pan ER physician for transfer to [facility]. 1356 Patient picked up by EMS for transport to [facility] - EKG/XRAY/CT Comments: sinus rhythm, no ischemic changes ED Results Lab/Radiology - Radiology Radiology Impressions: Single frontal view of the chest History: PCXR, SOA TODAY. PT STATES HX OF CARDIOMYOPATHY AND FORMER SMOKER comparison: September 11, 2018 Cardiomegaly. Left chest pacemaker with single lead terminating in the region of the right ventricle. Again noted is prominence of the pulmonary hilum may be related to pulmonary hypertension. No focal consolidation or pleural effusion. No pneumothorax. No acute osseous pathology. Degenerative changes of the shoulders. Impression: 1. Cardiomegaly. No focal consolidation pleural effusion. 2. Pulmonary hilar prominence is again seen. Electronically signed on Oct 20, 2018 12:15:28 PM PROJECT MANAGER PROCESS DEVELOPMENT by: Celia Santiago - Orders Orders: ED Orders Category Date Time Status Place IV Lock 1T Care 10/20/18 10:46 Ordered CBC/PLATELET/DIFF Routine Lab 10/20/18 Ordered CMP Routine Lab 10/20/18 Ordered HCG [URINE HCG] Stat Lab 10/20/18 Uncollected NT-proBNP Stat Lab 10/20/18 Ordered TROPONIN I (cTnI) Stat Lab 10/20/18 Ordered UA W/MICRO IF INDICATED Routine Lab 10/20/18 10:51 Ordered Furosemide [Lasix] Med 10/20/18 10:57 Once 40 mg IVP NOW ONE Ipratropium/Albuterol Sulfate [Duoneb] Med 10/20/18 10:47 Once 3 ml NEB NOW ONE Ondansetron HCl/Pf [Zofran 4 mg/2 ml] Med 10/20/18 10:46 Once 4 mg IVP NOW ONE methylPREDNISolone SOD SUCC [Solu-MEDROL] Med 10/20/18 10:47 Once 125 mg IVP NOW ONE Dyspnea Physical Exam - EXAM General Appearance: mild distress (tripod position) EENT: ENT inspection normal Neck: nml inspection Respiratory: respiratory distress (tripod position), other (course breath sound bilaterally) CVS: reg. rate & rhythm, no murmur Abdomen: non-tender Skin: color nml Extremities: non-tender, edema (trace lower extremity edema bilaterally) Neuro/Psych: oriented x3 Discharge Clincal Impression: Hyperglycemia, Elevated d-dimer, Hypoxia Referrals: Primary Doctor,No [Primary Care Provider] - 2 Days Condition: Stable Disposition: XFER [facility] Decision to Admit: [id number] Date of Decison to Admit: 10/20/18 Decision Time: 13:29
[2018-10-20 11:18] LABS: MEAN CORPUSCULAR HEMOGLOBIN 25.6 pg (28.0-34.0)
[2018-10-20 11:19] LABS: BASOPHILS % 0.9 (0.0-1.5); MONOCYTES % 7.7 % (0.0-11.0); NEUTROPHILS # 4.2 # k/uL (1.4-7.7)
[2018-10-20 11:56] LABS: eGFR (Non-African) > 60
[2018-10-20] MEDS ORDERED: INSULIN REGULAR, HUMAN 100 UNIT/ML 3ML VIAL IV ONE (11:56)
[2018-10-20] MEDS ORDERED: 0.9 % SODIUM CHLORIDE 1,000 ML IV ONE (12:16)
[2018-10-20] MEDS ORDERED: ENOXAPARIN SODIUM 60 MG/0.6 ML DISP.SYRIN SQ ONE (12:47)
[2018-10-20 13:46] VITALS: BP 124/89
--- NOTE | 2018-10-21 03:42 | Diagnostic Imaging Report ---
MAXINE RICO [facility] [address] [facility] [address] [place], [place]. 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 PT STATES HX OF CARDIOMYOPATHY AND FORMER SMOKER comparison: September 11, 2018 Cardiomegaly. Left chest pacemaker with single lead terminating in the region of the right ventricle. Again noted is prominence of the pulmonary hilum may be related to pulmonary hypertension. No focal consolidation or pleural effusion. No pneumothorax. No acute osseous pathology. Degenerative changes of the shoulders. Impression: 1. Cardiomegaly. No focal consolidation pleural effusion. 2. Pulmonary hilar prominence is again seen. Electronically signed on Oct 20, 2018 12:15:28 PM METAL TANK ERECTOR by: Celia ZARATE
== END 2018-10-20 13:59 | disposition short-term general hospital (02) ==
LOC: ED 10:40
DX: E11.65 Type 2 diabetes mellitus with hyperglycemia (principal); R79.1 Abnormal coagulation profile; R09.02 Hypoxemia; Z79.4 Long term (current) use of insulin
CPT/HCPCS: 36415; 71045; 80053; 83880; 84484; 85025; 85379; 93005; 94640; 96365; 96372; 96375; 99285; J1650; J1940; J2405; J2930; J7030; S1016

== ENCOUNTER 2018-11-03 10:15 | Emergency (ER) | payer MEDICARE, OTHER ==
--- NOTE | 2018-11-03 10:43 | ED Physician Documentation ---
General Adult - HISTORIAN Historian: patient - HPI Stated Complaint: area of concerns with skin open area Chief Complaint: General Adult Onset: days ago (1) Timing: still present Severity: mild Further Comments: yes (She was recently hospitalized for a cardiac condition and she was noting areas in her groin are leaking clear fluid. She did tell "the leida schuler" this yesterday before her discharge and they told her to leave it open to air. No fever. No new changes. Denies any pain. She has not contacted her director of first impressions) - ROS CONST: no problems - PAST HX Past History: AMI Other History: none Surgeries/Procedures: other (angiogram ? she was not sure of procedure ) Immunizations: UTD Allergies/Adverse Reactions: Allergies Allergy/AdvReac Type Severity Reaction Status Date / Time No Known Allergies Allergy Verified 11/03/18 10:52 Home Medications: Ambulatory Orders Medication Instructions Recorded Carvedilol [Coreg] 12.5 mg PO BID 09/21/13 Furosemide 40 mg PO D 09/21/13 Insulin Glargine,Hum.rec.anlog 50 units SQ BID 09/21/13 [Lantus Solostar] Insulin Lispro [Humalog] 10 units SQ TID 09/21/13 Lisinopril 10 mg PO HS 09/21/13 Metolazone [Zaroxolyn] 2.5 mg PO D 08/27/18 Potassium Chloride [Klor-Con M20] 20 meq PO DAILY 08/27/18 Ondansetron HCl Rapdis [Zofran Odt] 4 mg PO Q8 PRN #45 tab 09/04/18 - SOCIAL HX Smoking History: cigarettes Alcohol Use: none Drug Use: none - FAMILY HX Family History: No - VITAL SIGNS Vital Signs: Vital Signs Temp Pulse Resp BP Pulse Ox 124/89 10/20/18 13:44 - REVIEWED ASSESSMENTS Nursing Assessment Reviewed: Yes Vitals Reviewed: Yes General Adult Physical Exam - PHYSICAL EXAM GENERAL APPEARANCE: no distress EENT: eye inspection normal NECK: normal inspection RESPIRATORY: no resp distress, chest non-tender, breath sounds normal CVS: reg rate & rhythm, heart sounds normal ABDOMEN: soft, no distension BACK: normal inspection SKIN: warm/dry, other (two puncture sites on both groins - with clear drainge from left . No redness or pain to touch. PUlses + skin color below concern area normal. Sensation normal. NO swelling ) EXTREMITIES: non-tender, normal range of motion, no evidence of injury, no edema NEURO: oriented X3, CN's nml as tested, motor nml Discharge Clincal Impression: Skin abnormality Referrals: Primary Doctor,No [Primary Care Provider] - 2 Days Condition: Stable Disposition: AGAINST MEDICAL ADVICE Decision to Admit: NO Date of Decison to Admit: 11/03/18 Decision Time: 10:43
[2018-11-03 10:51] VITALS: BP 133/81
== END 2018-11-03 10:43 | disposition left against medical advice (07) ==
LOC: ED 10:15
DX: L98.8 Other specified disorders of the skin and subcutaneous tissue (principal)
CPT/HCPCS: 99281

== ENCOUNTER 2019-03-02 08:19 | Emergency (ER) | payer MEDICARE, OTHER ==
[2019-03-02 08:35] VITALS: BP 103/74
[2019-03-02] MEDS: KETOROLAC TROMETHAMINE 60 MG/2 ML VIAL IM ONE (08:52)
[2019-03-02] MEDS: KETOROLAC TROMETHAMINE 30 MG/1ML VIAL IV ONE (08:52)
[2019-03-02] MEDS: cefTRIAXone SODIUM 1 GM in 0.9 % SODIUM CHLORIDE(MINIBAG+ 50 ML IV ONE (08:55)
[2019-03-02] MEDS: cefTRIAXone SODIUM 1 GM INJ IM ONE (09:05)
[2019-03-02] MEDS: Lidocaine 1% 5ml 10 MG/ML VIAL IJ ONE (09:05)
[2019-03-02 09:07] LABS: BASOPHILS % 1.3 % (0.0-1.5); EOSINOPHILS % 1.7 % (0.0-6.8); MEAN CORPUSCULAR HEMOGLOBIN 24.8 pg (28.0-34.0); MONOCYTES % 7.7 % (0.0-11.0); NEUTROPHILS # 8.6 # k/uL (1.4-7.7)
[2019-03-02] MEDS: 0.9 % SODIUM CHLORIDE(MINIBAG+ 100 ML IV ONE (09:07)
--- NOTE | 2019-03-02 09:13 | ED Physician Documentation ---
General Adult - HPI Stated Complaint: Back/L arm pain Chief Complaint: General Adult Additional Information: Patient presents to ED after waking up this morning with left gluteal pain and left elbow pain/swelling. 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 She is currently on anticoagulation. She states she woke up with pain in her left buttocks this morning, 10/10 sharp stabbing pain, non radiating. Patient denies numbness/tingling/swelling/redness in lower extremities. She then reports left elbow pain/redness/swelling which also starting this morning. 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) Other History: none, diabetes Type 2 Surgeries/Procedures: none Allergies/Adverse Reactions: Allergies Allergy/AdvReac Type Severity Reaction Status Date / Time No Known Allergies Allergy Verified 03/02/19 08:41 Home Medications: Ambulatory Orders Medication Instructions Recorded Carvedilol [Coreg] 12.5 mg PO BID 09/21/13 Furosemide 40 mg PO D 09/21/13 Insulin Glargine,Hum.rec.anlog 50 units SQ BID 09/21/13 [Lantus Solostar] Insulin Lispro [Humalog] 10 units SQ TID 09/21/13 Metolazone [Zaroxolyn] 2.5 mg PO D 08/27/18 Amoxicillin/Potassium Clav 1 each PO BID #20 tablet 03/02/19 [Augmentin 875Mg/125Mg] Baclofen 10 mg PO BID PRN #28 tablet 03/02/19 Benzonatate [Tessalon] 100 mg PO TID PRN #90 capsule 03/02/19 Citalopram Hydrobromide [Celexa] 1 tab PO QDAY 03/02/19 Rivaroxaban [Xarelto] 1 tab PO QDAY 03/02/19 Ropinirole HCl 1 tab PO DAILY 03/02/19 - SOCIAL HX Smoking History: cigarettes, greater than 1 pack/day Alcohol Use: none Drug Use: none - FAMILY HX Family History: No - VITAL SIGNS Vital Signs: Vital Signs Temp Pulse Resp BP Pulse Ox 71 18 103/74 92 03/02/19 08:25 03/02/19 08:25 03/02/19 08:25 03/02/19 08:25 - REVIEWED ASSESSMENTS Nursing Assessment Reviewed: Yes Vitals Reviewed: Yes ED Results Lab/Radiology - Lab Results Lab Results: Lab Results 03/02/19 08:52 WBC 11.70 K/ul K/ul (4.00-12.00) RBC 5.65 M/ul H M/ul (3.90-5.20) Hgb 14.0 g/dL g/dL (11.5-16.0) Hct 45.4 % % (34.5-46.5) MCV 80.0 fl fl (80.0-100.0) MCH 24.8 pg L pg (28.0-34.0) MCHC 30.8 g/dL g/dL (30.0-36.0) RDW 19.4 % H % (11.3-14.3) Plt Count 326 K/mm3 K/mm3 (130-400) Neut % (Auto) 73.3 % % (39.0-79.0) Lymph % (Auto) 16.0 % % (16.0-50.0) [place] % (Auto) 7.7 % % (0.0-11.0) Eos % (Auto) 1.7 % % (0.0-6.8) Baso % (Auto) 1.3 % % (0.0-1.5) Neut # (Auto) 8.6 # k/uL H # k/uL (1.4-7.7) Lymph # (Auto) 1.9 # k/uL # k/uL (0.6-4.0) [place] # (Auto) 0.9 # k/uL # k/uL (0.0-0.9) Eos # (Auto) 0.2 # k/uL # k/uL (0.0-0.6) Baso # (Auto) 0.2 # k/uL # k/uL (0.0-0.5) - Radiology Radiology Impressions: Report Submission Date: Mar 02, 2019 9:27:44 AM CDT Patient Study Name: CHANDRIKA BUSTILLOS Date: Mar 02, 2019 8:59:10 AM CDT Modality Type: DX Gender: F Description: L SPINE 2 OR 3 VIEWS : 66 Institution: [facility] Physician: MAXINE HUBBARD Examination: Plain film lumbar spine History: LOW BACK PAIN X1 MONTH, NKI Findings: 3 views of the lumbar spine demonstrate normal height. No anterior compression. Scattered osteophytes. Facet degenerative changes. Slight curvature to the left. No soft tissue abnormalities. Impression: Degenerative changes. No compression deformity. Electronically signed on Mar 02, 2019 9:27:44 AM CDT by: Wilfrid Ford Report Submission Date: Mar 02, 2019 9:26:42 AM CDT Patient Study Name: CHANDRIKA BUSTILLOS Date: Mar 02, 2019 8:59:10 AM CDT Modality Type: DX Gender: F Description: LT HIP 2VIEW COMPLETE : 66 Institution: [facility] Physician: MAXINE HUBBARD Examination: Plain film left hip History: LEFT HIP PAIN, X1 MONTH, PT STATES SHE PULLED A MUSCLE 1-2 WEEKS AGO Comparison exams: None provided Findings: 2 views of the left hip demonstrate normal cortical margins. No fracture no dislocation. Mild acetabular degenerative spurring. No soft tissue abnormality. Impression: Mild degenerative changes. No acute osseous abnormality. Electronically signed on Mar 02, 2019 9:26:42 AM CDT by: Wilfrid Ford - Orders Orders: ED Orders Category Date Time Status Place IV Lock 1T Care 03/02/19 09:01 Active L SPINE 2 OR 3 VIEWS [RAD] Stat Exams 03/02/19 Ordered LT HIP 2VIEW COMPLETE [RAD] Stat Exams 03/02/19 Ordered BLOOD CULTURE Stat Lab 03/02/19 08:52 Ordered CBC/PLATELET/DIFF Routine Lab 03/02/19 08:52 Completed CMP Routine Lab 03/02/19 08:52 Received 0.9 % Sodium Chloride(Minibag+ [Normal Saline (Minibag+ Med 03/02/19 08:47 Discontinued )] 100 ml IV .STK-MED Ketorolac Tromethamine [Toradol] Med 03/02/19 09:01 Discontinued 30 mg IV NOW ONE Ketorolac Tromethamine [Toradol] Med 03/02/19 08:37 Discontinued 60 mg IM NOW ONE Lidocaine 1% 5ml [Xylocaine] Med 03/02/19 08:36 Discontinued 50 mg IJ NOW ONE cefTRIAXone SODIUM [Rocephin] Med 03/02/19 08:36 Discontinued 1 gm IM NOW ONE cefTRIAXone SODIUM [Rocephin] 1 gm Med 03/02/19 09:01 Active 0.9 % Sodium Chloride(Minibag+ [Normal Saline (Minibag+ )] 50 ml IV NOW General Adult Physical Exam - PHYSICAL EXAM GENERAL APPEARANCE: no distress EENT: SEYMOUR NECK: normal inspection, supple RESPIRATORY: no resp distress, chest non-tender, breath sounds normal CVS: reg rate & rhythm, heart sounds normal ABDOMEN: soft. No: tenderness BACK: normal inspection, other (no vertebral point tenderness. NO tenderness over gluteal region bilaterally) SKIN: warm/dry, normal color EXTREMITIES: non-tender, other (chronic venous insufficieny) NEURO: oriented X3, motor nml, sensation nml, mood/affect nml Discharge Clincal Impression: Cellulitis of left elbow, Left buttock pain Prescriptions: Amoxicillin/Potassium Clav [Augmentin 875Mg/125Mg] 1 each PO BID #20 tablet Baclofen 10 mg PO BID PRN #28 tablet PRN Reason: left buttock pain/muscle spasm Benzonatate [Tessalon] 100 mg PO TID PRN #90 capsule PRN Reason: Cough Referrals: Primary Doctor,No [Primary Care Provider] - 2 Days Additional Instructions: 1. Start antibiotic tomorrow, take until gone 2. Use muscle relaxers as needed for left buttock pain/spasm 3. Stay active and stretch several times a day 4. Continue all home medications. Check blood sugars 5. Follow up with PCP within 1 week 6. Return to ER for new or worsening symptoms. Condition: Stable Disposition: 01 HOME, SELF-CARE Decision to Admit: NO Date of Decison to Admit: 03/02/19 Decision Time: 09:42
[2019-03-02 09:24] LABS: eGFR (Non-African) > 60
--- NOTE | 2019-03-02 22:12 | Diagnostic Imaging Report ---
MAXINE HUBBARD [facility] [id number] [facility] [address] [address] Report Submission Date: Mar 02, 2019 9:27:44 AM CDT Patient Study Name: CHANDRIKA BUSTILLOS Date: Mar 02, 2019 8:59:10 AM CDT Modality Type: DX Gender: F Description: L SPINE 2 OR 3 VIEWS : 66 Institution: [facility] Physician: MAXINE HUBBARD Examination: Plain film lumbar spine History: LOW BACK PAIN X1 MONTH, NKI Findings: 3 views of the lumbar spine demonstrate normal height. No anterior compression. Scattered osteophytes. Facet degenerative changes. Slight curvature to the left. No soft tissue abnormalities. Impression: Degenerative changes. No compression deformity. Electronically signed on Mar 02, 2019 9:27:44 AM CDT by: Wilfrid ZARATE
--- NOTE | 2019-03-02 22:13 | Diagnostic Imaging Report ---
MAXINE HUBBARD [facility] [address] [facility] [address] [address] Report Submission Date: Mar 02, 2019 9:26:42 AM CDT Patient Study Name: CHANDRIKA BUSTILLOS Date: Mar 02, 2019 8:59:10 AM CDT Modality Type: DX Gender: F Description: LT HIP 2VIEW COMPLETE : 66 Institution: [facility] Physician: MAXINE HUBBARD Examination: Plain film left hip History: LEFT HIP PAIN, X1 MONTH, PT STATES SHE PULLED A MUSCLE 1-2 WEEKS AGO Comparison exams: None provided Findings: 2 views of the left hip demonstrate normal cortical margins. No fracture no dislocation. Mild acetabular degenerative spurring. No soft tissue abnormality. Impression: Mild degenerative changes. No acute osseous abnormality. Electronically signed on Mar 02, 2019 9:26:42 AM CDT by: Wilfrid ZARATE
== END 2019-03-02 09:50 | disposition home or self-care (01) ==
LOC: ED 08:19
DX: L03.114 Cellulitis of left upper limb (principal); M79.18 Myalgia, other site
CPT/HCPCS: 36415; 72100; 73502; 80053; 85025; 87040; 96372; 96374; 99283; 99284; J0696; J1885; S1016